=== PATIENT | female | born 1970 | race African-American/Black ===

== ENCOUNTER 2020-12-17 02:50 | Inpatient (IN) | payer OTHER ==
[~2020-12-17] VITALS: Ht 165.1 cm; Wt 99.8 kg
[2020-12-17 03:08] VITALS: BP 146/99
[2020-12-17] MEDS ORDERED: LISINOPRIL20 MG PO (03:13)
[2020-12-17] MEDS ORDERED: CLARITIN10 M3 PO (03:13)
[2020-12-17 03:34] LABS: ABSOLUTE NEUTROPHILS 3.2 thou/uL (1.4-8.2); BASOPHILS 0.4 % (0.0-2.0); EOSINOPHILS 4.6 % (0.0-3.0); HEMATOCRIT 37.8 % (37.0-47.0); HEMOGLOBIN 12.3 gm/dL (12.0-15.0); LYMPHOCYTES 26.9 % (24.0-44.0); MCH 26.2 pg (26.0-34.0); MCHC 32.5 g/dL (28.0-37.0); MCV 80.8 fL (80.0-100.0); MONOCYTES 7.5 % (1.0-8.0); PLATELET COUNT 194 thou/uL (150-400); POLYS 60.6 % (36.0-66.0); RBC 4.68 mil/uL (4.20-5.00); RDW 14.9 % (10.5-14.5); WBC 5.4 thou/uL (4.0-11.0)
[2020-12-17 03:52] LABS: INR 0.98; PROTIME 10.7 Seconds (10.5-12.1)
[2020-12-17 03:53] LABS: CALCIUM 8.7 mg/dL (8.5-10.1); CREATININE 0.9 mg/dL (0.6-1.0); POTASSIUM 3.8 mmol/L (3.5-5.1)
[2020-12-17 03:57] LABS: ALBUMIN 3.3 g/dL (3.4-5.0); TOTAL BILIRUBIN 0.3 mg/dL (0.2-1.0); TOTAL PROTEIN 7.9 g/dL (6.4-8.2)
--- NOTE | 2020-12-17 04:48 | NUR ---
UPON RECEIVEING IV CONTRAST IN CT, PATIENT BECAME NAUSEATED AND STARTED VOMITING. PHYSICIAN NOTIFIED. MEDICATIONS ADMINSTERED PER EMAR RECORD
[2020-12-17 11:10] VITALS: BP 132/92
[2020-12-17 11:46] VITALS: BP 128/86
[2020-12-17 12:12] VITALS: BP 136/98
[2020-12-17] MEDS ORDERED: NASACORT10.8 ML NASAL (12:19)
[2020-12-17 15:35] VITALS: BP 130/87
--- NOTE | 2020-12-17 16:04 | NUR ---
Patient alert and orinted x4, on room air, up ad mt in room, no nausea, pain meds given per MAR for headache, vitals stable, and afbreile. Call light with in reach. Will continue to monitor.
[2020-12-17 20:32] VITALS: BP 138/103
--- NOTE | 2020-12-18 05:13 | NUR ---
Pt. rested quietly at intervals during the night when checked on during frequent rounds. Pt. voiced that she had some small blood clots in the toilet after urinating and having a bowel movement. No c/o pain. Up ad mt in her room.
[2020-12-18 06:02] LABS: BASOPHILS 0.4 % (0.0-2.0); EOSINOPHILS 4.1 % (0.0-3.0); HEMATOCRIT 36.1 % (37.0-47.0); HEMOGLOBIN 11.3 gm/dL (12.0-15.0); LYMPHOCYTES 23.1 % (24.0-44.0); MCH 25.3 pg (26.0-34.0); MCHC 31.3 g/dL (28.0-37.0); MCV 80.9 fL (80.0-100.0); PLATELET COUNT 198 thou/uL (150-400); POLYS 64.4 % (36.0-66.0); RBC 4.47 mil/uL (4.20-5.00); RDW 15.2 % (10.5-14.5); WBC 4.7 thou/uL (4.0-11.0)
[2020-12-18 06:22] LABS: CALCIUM 8.9 mg/dL (8.5-10.1); CREATININE 0.9 mg/dL (0.6-1.0); MAGNESIUM 1.8 mg/dL (1.8-2.4); POTASSIUM 4.1 mmol/L (3.5-5.1)
[2020-12-18 07:27] VITALS: BP 131/82
[2020-12-18 08:10] VITALS: BP 131/82
--- NOTE | 2020-12-18 12:06 | NUR ---
Assumed pt care at 7am.Assessment completed.vss.Am meds given and well tolerated.Pt c/o headache rated 7/10,tylenol po given with relief.Dr Hsieh and Quintin here,order noted.Pt encouraged to seek medical treatment for skin infection at either or [facility].Pt will be dc home later today.No further c/o at present.Will continue to monitor.
[2020-12-18 15:27] VITALS: BP 130/86
[2020-12-18] MEDS ORDERED: CIPRO500 M1 PO (16:49)
[2020-12-18] MEDS ORDERED: ACETAMINOPHEN325 M1 PO (16:49)
[2020-12-18] MEDS ORDERED: METRONIDAZOLE500 M4 PO (16:49)
[2020-12-18 16:53] VITALS: BP 131/82
== END 2020-12-18 17:50 | disposition home or self-care (01) | DRG 379 ==
LOC: ER 02:50 → EROBS 05:57 → 4W 11:52
PROVIDERS: Emergency Medicine; Nurse Practitioner; ADMIT Internal Medicine; ATTEND Internal Medicine
DX: K57.33 Diverticulitis of large intestine without perforation or abscess with bleeding (principal); I10 Essential (primary) hypertension; J30.2 Other seasonal allergic rhinitis; K76.0 Fatty (change of) liver, not elsewhere classified; E66.01 Morbid (severe) obesity due to excess calories; Z90.711 Acquired absence of uterus with remaining cervical stump; Z88.1 Allergy status to other antibiotic agents; Z79.899 Other long term (current) drug therapy; Z68.36 Body mass index [BMI] 36.0-36.9, adult
CPT/HCPCS: 10047